=== PATIENT | male | born 1950 | race Caucasian/White ===

== ENCOUNTER 2021-10-24 11:44 | Inpatient (IN) | payer MEDICARE ==
[2021-10-24] MEDS ORDERED: HEPARIN SODIUM 1,000 UN/ML (10ML VL) IV PRN (21:05)
[2021-10-24] MEDS: HEPARIN SOD,PORK IN 0.45% NACL 25,000 UNIT in 0.45% NACL 1 250ML.BAG IV SCH (21:50)
[2021-10-24 22:33] LABS: INR 0.9 (<1.2); Prothrombin Time 10.3 sec (9.0-12.0)
[2021-10-25] MEDS ORDERED: ACETAMINOPHEN TAB 325 MG TAB PO PRN (00:24)
[2021-10-25] MEDS: ASPIRIN 81 MG PO SCH ×2 (00:57→08:21)
[2021-10-25] MEDS: METOPROLOL TARTRATE 25 MG TAB PO SCH ×3 (00:57→22:44)
[2021-10-25] MEDS: SODIUM CHLORIDE 0.9% 1,000 ML in EMPTY BAG 1 BAG IV SCH ×2 (00:59→08:22)
[2021-10-25] MEDS ORDERED: NITROGLYCERIN-D5W PMX 50 MG in DEXTROSE/WATER 1 250ML.BAG IV SCH (01:00)
[2021-10-25 05:38] LABS: Glucose,Whole Blood 183 mg/dL (75-99)
[2021-10-25] MEDS: INSULIN ASPART (NovoLOG) 100 UNIT/ML VIAL SQ SCH ×4 (06:44→22:44)
[2021-10-25 08:14] LABS: Basophils # (A) 0.1 k/uL (0-0.2); Basophils % (A) 1 %; Eosinophils # (A) 0.3 k/uL (0-0.7); Eosinophils % (A) 3 %; HCT 42.3 % (39.0-53.0); HGB 13.9 gm/dL (13.0-17.5); Lymphocytes # (A) 2.6 k/uL (1.0-4.8); Lymphocytes % (A) 31 %; MCH 30.8 pg (25.0-35.0); MCHC 32.8 g/dL (31.0-37.0); Mean Platelet Volume 7.2; Monocytes # (A) 0.4 k/uL (0-1.0); Monocytes % (A) 5 %; Neutrophils # (A) 5.1 k/uL (1.3-7.7); Neutrophils % (A) 59 %; Platelet Count 280 k/uL (150-450); RDW 12.5 % (11.5-15.5); WBC 8.6 k/uL (3.8-10.6)
[2021-10-25] MEDS ORDERED: ASPIRIN 325 MG TAB PO STA (08:21)
[2021-10-25 08:27] LABS: African American GFR (CKD) >90 (>60 ml/min/1.73 sqM); Anion Gap 8 mmol/L; Blood Urea Nitrogen 14 mg/dL (9-20); Calcium 8.4 mg/dL (8.4-10.2); Carbon Dioxide 27 mmol/L (22-30); Chloride 103 mmol/L (98-107); Glucose 163 mg/dL (74-99); Non-African American GFR(CKD) >90 (>60 ml/min/1.73 sqM); Potassium 3.9 mmol/L (3.5-5.1); Sodium 138 mmol/L (137-145)
[2021-10-25] MEDS: ATORVASTATIN 80 MG TAB PO SCH ×2 (08:33→22:44)
--- NOTE | 2021-10-25 09:11 | P.CRDCN ---
History of Present Illness Consult date: 10/25/21 History of present illness: HISTORY OF PRESENT ILLNESS: This is a 70-year-old male with a past medical history significant for coronary artery disease with previous stenting to the LAD, hypertension, and hyperlipidemia. Patient follows in the office with Dr. Brito. We have been asked to see the patient in consultation for NSTEMI. Patient examined at the bedside. Patient was transferred from outside facility secondary to abnormal troponins. Patient initially presented with a chief complaint of chest pain. Patient was started on IV heparin. This morning the patient has chest pain free. He is scheduled for cardiac catheterization this morning. * EKG reveals sinus mechanism with nonspecific ST-T wave changes * Chest xray not available at the time of this dictation * Laboratory data: WBC 8.6. Hemoglobin 13.9. Platelet count 280. Sodium 138. Potassium 3.9. BUN 14. Creatinine 0.71. Troponin 1.590. 3.680. 2.230. * Current home cardiac medications include hydrochlorothiazide 25 mg daily, Norvasc 10 mg daily, Imdur 30 mg daily, aspirin 81 mg daily, and lisinopril 20 mg daily * Patient underwent Lexiscan stress test in September 2020 which was negative for ischemia * Most recent echocardiogram obtained in May 2019 revealing ejection fraction 55%, mild MR, mild TR REVIEW OF SYSTEMS: At the time of my exam: CONSTITUTIONAL: Denies fever or chills. HEENT: Denies blurred vision, vision changes, or eye pain. Denies hemoptysis CARDIOVASCULAR: Denies chest pain. Denies orthopnea. Denies PND. Denies palpitations RESPIRATORY: Denies shortness of breath. GASTROINTESTINAL: Denies abdominal pain. Denies nausea or vomiting. HEMATOLOGIC: Denies bleeding disorders. GENITOURINARY: Denies any blood in urine. SKIN: Denies pruitis. Denies rash. PHYSICAL EXAM: VITAL SIGNS: Reviewed. GENERAL: Well-developed in no acute distress. HEENT: Head is normocephalic. Pupils are equal, round. Sclerae anicteric. Mucous membranes of the mouth are moist. Neck supple. No JVD or thyromegaly LUNGS: Respirations even and unlabored. Lungs essentially clear to auscultation bilaterally. HEART: Regular rate and rhythm. S1 and S2 heard. ABDOMEN: Soft. Nondistended. Nontender. EXTREMITIES: Normal range of motion. No clubbing or cyanosis. Peripheral pulses intact. No lower extremity edema NEUROLOGIC: Awake and alert. Oriented x 3. ASSESSMENT: Non-STEMI Coronary artery disease with previous PCI to LAD Hypertension Hyperlipidemia PLAN: Obtain 2-D echo to assess cardiac structure and function Resume home cardiac medications Continue IV heparin Patient to undergo cardiac catheterization today with Dr. Duarte Further recommendations pending patient's course Nurse practitioner note has been reviewed by physician. Signing provider agrees with the documented findings, assessment, and plan of care. Past Medical History Past Medical History: Cancer, Diabetes Mellitus, Hyperlipidemia, Hypertension, Sleep Apnea/CPAP/BIPAP Additional Past Medical History / Comment(s): HAD STRESS TEST WITH DR. ANDREW GONG ON 11/02/15. CPAP. MELANOMA(NECK). RENAL CALCULI. History of Any Multi-Drug Resistant Organisms: None Reported Past Surgical History: Appendectomy, Heart Catheterization With Stent Additional Past Surgical History / Comment(s): REMOVAL OF MELANOMA FROM NECK Past Anesthesia/Blood Transfusion Reactions: No Reported Reaction Date of Last Stent Placement:: 2012 Past Psychological History: No Psychological Hx Reported Smoking Status: Never smoker Past Alcohol Use History: Occasional Past Drug Use History: None Reported Medications and Allergies Home Medications Medication Instructions Recorded Confirmed Type amLODIPine [Norvasc] 10 mg PO DAILY 11/02/15 10/24/21 History metFORMIN HCL [Glucophage] 500 mg PO BID-W/MEALS 11/02/15 10/24/21 History Aspirin EC [Ecotrin Low Dose] 81 mg PO DAILY 10/24/21 10/24/21 History Atorvastatin Calcium [Lipitor] 80 mg PO DAILY 10/24/21 10/24/21 History Isosorbide Mononitrate ER [Imdur] 30 mg PO DAILY 10/24/21 10/24/21 History Multivit-Min/FA/Lycopen/Lutein 1 tab PO DAILY 10/24/21 10/24/21 History [Centrum Silver Men Tablet] Nitroglycerin Sl Tabs [Nitrostat] 0.4 mg SUBLINGUAL Q5M PRN 10/24/21 10/24/21 History hydroCHLOROthiazide 25 mg PO DAILY 10/24/21 10/24/21 History lisinopriL [Zestril] 20 mg PO DAILY 10/24/21 10/24/21 History Allergies Allergy/AdvReac Type Severity Reaction Status Date / Time No Known Allergies Allergy Verified 11/02/15 13:57 Physical Exam Vitals: Vital Signs Temp Pulse Pulse Resp BP BP Pulse Ox 10/25/21 04:00 98.5 F 50 L 16 142/76 97 10/25/21 01:36 60 16 10/24/21 23:34 98.1 F 60 16 164/85 94 L 10/24/21 22:00 58 L 18 160/82 96 10/24/21 21:03 97.8 F 76 16 141/92 97 Intake and Output 10/24/21 10/25/21 10/25/21 22:59 06:59 14:59 Intake Total 17.667 Balance 17.667 Intake: Intake, IV Titration 17.667 Amount Heparin Sod,Pork in 0.45% 17.667 NaCl 25,000 unit In 0.45 % NaCl 1 250ml.bag @ 9.4 UNITS/KG/HR 10.02 mls/hr IV .Q24H [facility] Rx#: [id number] Other: Voiding Method Toilet # Voids 1 Weight 106 kg 106.2 kg Results 10/25/21 07:25 10/25/21 07:25 Cardiac Enzymes 10/24/21 10/24/21 Range/Units 12:02 21:41 Troponin I 1.590 H* 3.680 H* (0.000-0.034) ng/mL Coagulation 10/24/21 Range/Units 21:41 PT 10.3 (9.0-12.0) sec APTT 25.0 (22.0-30.0) sec Current Medications Generic Name Dose Route Start Last Admin Trade Name Freq PRN Reason Stop Dose Admin Acetaminophen 650 mg 10/25/21 00:24 10/25/21 00:56 Acetaminophen Tab 325 Mg Tab PO 650 mg Q6HR PRN Administration Fever and/ or Pain Aspirin 81 mg 10/25/21 00:25 10/25/21 00:57 Aspirin 81 Mg PO 81 mg DAILY KEELY Administration Atorvastatin Calcium 80 mg 10/25/21 21:00 Atorvastatin 80 Mg Tab PO HS KEELY Heparin Sodium (Porcine) 0 unit 10/24/21 21:05 10/24/21 23:51 Heparin Sodium 1,000 Un/Ml (10ml Vl) IV 4,000 unit PER PROTOCOL PRN Administration Low PTT Protocol Heparin Sodium/Sodium Chloride 250 mls @ 10.02 mls/hr 10/24/21 21:15 10/24/21 23:36 25,000 unit/ Sodium Chloride IV 12.38 units/kg/hr .Q24H KEELY 13.196 mls/hr Titration Protocol 9.4 UNITS/KG/HR Sodium Chloride 1,000 ml/ IV 1,000 mls @ 106.594 mls/hr 10/25/21 00:30 10/25/21 00:59 Solution IV 106.594 mls/hr .Q9H23M KEELY Administration 1 ML/KG/HR Nitroglycerin/Dextrose 50 mg/ 250 mls @ 6 mls/hr 10/25/21 01:00 IV Solution IV .Q24H KEELY Protocol 20 MCG/MIN Insulin Aspart 0 unit 10/25/21 07:30 10/25/21 06:44 Insulin Aspart (Novolog) 100 Unit/Ml Vial SQ 3 unit ACHS KEELY Administration Protocol Metoprolol Tartrate 25 mg 10/25/21 00:30 10/25/21 00:57 Metoprolol Tartrate 25 Mg Tab PO 25 mg BID KEELY Administration Intake and Output 10/24/21 10/25/21 10/25/21 22:59 06:59 14:59 Intake Total 17.667 Balance 17.667 Intake: Intake, IV Titration 17.667 Amount Heparin Sod,Pork in 0.45% 17.667 NaCl 25,000 unit In 0.45 % NaCl 1 250ml.bag @ 9.4 UNITS/KG/HR 10.02 mls/hr IV .Q24H [facility] Rx#: [id number] Other: Voiding Method Toilet # Voids 1 Weight 106 kg 106.2 kg
[2021-10-25] MEDS ORDERED: VERAPAMIL 2.5 MG/ML 2 ML AMP ONE (09:16)
[2021-10-25] MEDS ORDERED: HEPARIN SODIUM 1,000 UN/ML (10ML VL) ONE ×2 (09:16→10:41)
[2021-10-25] MEDS ORDERED: IV FLUID CONTINUATION 1,000 ML IV ONE (09:20)
[2021-10-25] MEDS ORDERED: fentaNYL (PF) 50 MCG/ML 2 ML AMP ONE (09:29)
[2021-10-25] MEDS: MIDAZOLAM 2 MG/2 ML VIAL IV ONE ×2 (09:30→10:39)
[2021-10-25] MEDS ORDERED: fentaNYL (PF) 50 MCG/ML 2 ML AMP IV ONE (09:30)
[2021-10-25] MEDS ORDERED: LIDOCAINE 1% INJ 10MG/ML (5 ML VIAL-PF) SQ ONE (09:33)
[2021-10-25] MEDS ORDERED: VERAPAMIL SYRINGE (5 MG/10 ML) INTRAARTER ONE (09:35)
[2021-10-25] MEDS: HEPARIN SODIUM 1,000 UN/ML (10ML VL) IV ONE ×6 (09:39→11:07)
[2021-10-25] MEDS ORDERED: TICAGRELOR 90 MG TAB ONE (10:05)
[2021-10-25] MEDS ORDERED: TICAGRELOR 90 MG TAB PO ONE (10:07)
[2021-10-25] MEDS: NITROGLYCERIN 1000MCG/10ML SYRINGE INTRACORON ONE ×4 (10:47→11:17)
[2021-10-25] MEDS: niCARdipine Syringe (1,000 mcg/10 mL) INTRACORON ONE ×2 (10:58→11:03)
[2021-10-25] MEDS ORDERED: IOPAMIDOL-370 125ML BTL INJ ONE (11:09)
--- NOTE | 2021-10-25 11:09 | CC ---
CARDIAC CATHETERIZATION REPORT INDICATION: Acute non ST segment [place]. PROCEDURE NOTE: After obtaining informed consent, left heart catheterization and coronary angiogram were performed via the right radial artery using size 3 and a half Isidro right and left catheters. Pressures were obtained using the right Isidro catheter. The patient tolerated the procedure uneventfully. He received moderate conscious sedation. Total sedation time was 18 minutes. I obtained right radial artery access using Seldinger technique, and catheter and a Glidewire was used to manipulate the catheter into the ascending aorta, where the catheters were exchanged. The patient received 5 mg of verapamil and 5000 units of intravenous heparin as per protocol. FINDINGS: HEMODYNAMICS: Left ventricular end-diastolic pressure is 12-14 mm. There is no significant gradient across the aortic valve. LEFT VENTRICULOGRAM: Not performed. ANGIOGRAPHIC DATA: LEFT MAIN CORONARY ARTERY: Left main coronary artery is a normal-sized vessel and is free of stenosis, appears calcified, divides into left anterior descending coronary artery and circumflex coronary artery. CIRCUMFLEX CORONARY ARTERY: Circ shows mild to moderate diffuse disease and is calcified. LEFT ANTERIOR DESCENDING CORONARY ARTERY: LAD was previously stented in the proximal segment and stented segment appears patent. There is a small-caliber diagonal branch that shows diffuse disease. RIGHT CORONARY ARTERY: Right coronary artery is a large dominant vessel that is heavily calcified. There is a focal 95% stenosis in the mid RCA with an area of . The distal vessel is filling very slowly. The PDA also seems subtotally occluded. CONCLUSIONS: Three-vessel coronary artery disease with the vessels heavily calcified. Patent stent within the LAD, new focal stenosis in the mid RCA and subtotal occlusion of the PDA, which is probably the vessel responsible for the myocardial infarction. PLAN: Dr. Alvarenga the on-call electronics engineering professor, will review the angiogram and proceed with angioplasty. MMODL / IJN: [id number] /
--- NOTE | 2021-10-25 11:15 | LTR ---
DATE OF SERVICE: 10/25/[address] Cage: I performed cardiac catheterization on Jaime Martinez. A detailed catheterization note is enclosed for your records. In brief, Rajendra presented to hospital with acute non ST segment [place] and was advised to undergo cardiac catheterization that revealed patent stent within the LAD and critical stenosis involving mid RCA and PDA. The patient will undergo angioplasty of the same. Thank you for giving us the privilege to participate in the care of this pleasant gentleman. Sincerely, MARTIN / SANDRA: [id number] /
[2021-10-25] MEDS ORDERED: IOPAMIDOL-370 100ML BTL INJ ONE (11:27)
[2021-10-25 12:41] LABS: Glucose,Whole Blood 171 mg/dL (75-99)
[2021-10-25] MEDS ORDERED: CLOPIDOGREL 75 MG TAB ONE (12:59)
[2021-10-25] MEDS ORDERED: lisinopriL 20 MG TAB PO STA (14:19)
[2021-10-25] MEDS ORDERED: amLODIPine 10 MG TAB PO STA (14:20)
[2021-10-25 16:59] LABS: Glucose,Whole Blood 173 mg/dL (75-99)
--- NOTE | 2021-10-25 18:19 | P.PRCINT ---
Percutaneous Coronary Int. - Percutaneous Coronary Intervention Percutaneous Coronary Intervention: PROCEDURES PERFORMED: Left coronary angiography, CSI rotational atherectomy RCA, PCI proximal RCA with 3.5 x 12mm Xience PATRICK and PCI 3.5 x 28mm Xience PATRICK, post dilated with a 4.0 NC balloon. INDICATION: NSTEMI PROCEDURE: After the risks, benefits and alternatives of the above mentioned procedure explained in detail with the patient, informed consent was obtained. Patient was taken to the catheterization lab and prepped and draped in usual fashion. A 6-Anguillan sheath had already been placed in the right radial artery. The decision was made to perform PCI of the RCA. A 6Fr AL 1.0 guide catheter was used to engage the RCA. A 0.014 Viper wire was used to wire into the distal RCA with the help of a supercross microcatheter. The artery was noted to be diffusely heavily calcified. There was some consideration of fresh thrombus but also appeared heavily calcified and therefore atherectomy was recommended. Therefore a 6Fr sheath was placed in the right femoral vein using ultrasound guidance. A 5Fr TVP was advanced into the RV and TVP was placed on backup. Next atherectomy was performed with CSI for 5 runs on low speed and 2 runs on higher run. There was some no reflow noted after atherectomy and therefore further balloon angioplasty was performed with a 1.5 balloon and intracoronary nicardipine and nitro were given with improvement in flow. With the help of a guideliner, balloon angioplasty was performed with a 3.0 balloon. There was a 70% stenosis of the proximal RCA and therefore PCI was performed of the ostial RCA with a 3.5 x 12mm Xience PATRICK. The proximal stent was post dilated with a 4.0 NC balloon. Next a 3.5 x 28mm Xience PATRICK was deployed in the mid RCA. The stent was post dilated with a 4.0 NC balloon. Final angiograms were performed. Preintervention there was HORACIO 1 flow in the PDA and HORACIO 2 flow in the PLV with 99% mid RCA stenosis and 70% proximal RCA stenosis and post intervention there was HORACIO 3 flow and <10% residual stenosis. The right radial sheath was removed and a TR band was placed with hemostasis achieved. The right femoral sheath was left in place to be pulled at a later time. The patient tolerated the procedure well. Patient was transported back to the post catheterization holding area in stable condition. Conscious Sedation: Patient was monitored under the direct supervision of vision of myself for conscious sedation using Versed and fentanyl for a total duration of 88 minutes SELECTIVE CORONARY ARTERIOGRAPHY: LEFT MAIN: Not imaged. LEFT ANTERIOR DESCENDING CORONARY ARTERY: Not imaged. LEFT CIRCUMFLEX CORONARY ARTERY: Not imaged. RIGHT CORONARY ARTERY: The right coronary artery is a large caliber vessel which gives off a PDA and PLV branch and is the dominant vessel. There is diffuse heavy calcification of the entire proximal to distal RCA. There is a proximal 70% RCA stenosis and a focal 99% RCA with surrounding diffuse 40-50% stenosis. FINAL IMPRESSION: 1. CAD as described above with 99% mid RCA and 70% proximal RCA stenosis, s/p CSI rotational atherectomy RCA, PCI proximal RCA with 3.5 x 12mm Xience PATRICK and PCI 3.5 x 28mm Xience PATRICK, post dilated with a 4.0 NC balloon. PLAN: 1. Aggressive risk factor modification per most recent ACC/AHA guidelines. 2. Continue dual antiplatelets with aspirin and Brillinta for 12 months.
[2021-10-25] MEDS ORDERED: ZOLPIDEM 5 MG TAB PO PRN (18:22)
[2021-10-25] MEDS ORDERED: ATROPINE SULFATE 0.1 MG/ML 10ML SYRINGE IV PRN (18:22)
[2021-10-25] MEDS ORDERED: NITROGLYCERIN SL TABS 0.4 MG TAB SUBLINGUAL PRN (18:22)
[2021-10-25] MEDS ORDERED: MAG HYDROX/AL HYDROX/SIMETH 30 ML CUP PO PRN (18:22)
[2021-10-25] MEDS ORDERED: RX INFO: IV CONTRAST WAS GIVEN 1 EACH MISC MISCELLANE PRN (18:22)
[2021-10-25] MEDS ORDERED: ATORVASTATIN 80 MG TAB PO SCH (21:00)
[2021-10-25 21:08] LABS: Glucose,Whole Blood 175 mg/dL (75-99)
[2021-10-25] MEDS: TICAGRELOR 90 MG TAB PO SCH (22:44)
[2021-10-26] MEDS: HEPARIN SOD,PORK IN 0.45% NACL 25,000 UNIT in 0.45% NACL 1 250ML.BAG IV SCH (03:31)
[2021-10-26 06:05] LABS: Glucose,Whole Blood 154 mg/dL (75-99)
[2021-10-26] MEDS: INSULIN ASPART (NovoLOG) 100 UNIT/ML VIAL SQ SCH ×2 (06:25→11:42)
[2021-10-26] MEDS ORDERED: hydroCHLOROthiazide 25 MG TAB PO SCH (09:00)
[2021-10-26] MEDS ORDERED: amLODIPine 10 MG TAB PO SCH (09:00)
[2021-10-26] MEDS ORDERED: ISOSORBIDE MONONITRATE ER 30 MG TAB.ER.24H PO SCH (09:00)
[2021-10-26] MEDS ORDERED: lisinopriL 20 MG TAB PO SCH (09:00)
[2021-10-26] MEDS: SODIUM CHLORIDE 0.9% 1,000 ML in EMPTY BAG 1 BAG IV SCH ×2 (09:16→10:24)
[2021-10-26] MEDS: TICAGRELOR 90 MG TAB PO SCH (09:20)
[2021-10-26] MEDS: ASPIRIN 81 MG PO SCH (09:20)
[2021-10-26] MEDS: METOPROLOL TARTRATE 25 MG TAB PO SCH (09:20)
[2021-10-26 09:55] VITALS: RESP 16
[2021-10-26 10:06] LABS: African American GFR (CKD) >90 (>60 ml/min/1.73 sqM); Non-African American GFR(CKD) >90 (>60 ml/min/1.73 sqM)
--- NOTE | 2021-10-26 10:30 | P.PN ---
Subjective HISTORY OF PRESENT ILLNESS: This is a 70-year-old male with a past medical history significant for coronary artery disease with previous stenting to the LAD, hypertension, and hyperlipidemia. Patient follows in the office with Dr. Brito. We have been asked to see the patient in consultation for NSTEMI. Patient examined at the bedside. Patient was transferred from outside facility secondary to abnormal troponins. Patient initially presented with a chief complaint of chest pain. Patient was started on IV heparin. This morning the patient has chest pain free. He is scheduled for cardiac catheterization this morning. * EKG reveals sinus mechanism with nonspecific ST-T wave changes * Chest xray not available at the time of this dictation * Laboratory data: WBC 8.6. Hemoglobin 13.9. Platelet count 280. Sodium 138. Potassium 3.9. BUN 14. Creatinine 0.71. Troponin 1.590. 3.680. 2.230. * Current home cardiac medications include hydrochlorothiazide 25 mg daily, Norvasc 10 mg daily, Imdur 30 mg daily, aspirin 81 mg daily, and lisinopril 20 mg daily * Patient underwent Lexiscan stress test in September 2020 which was negative for ischemia * Most recent echocardiogram obtained in May 2019 revealing ejection fraction 55%, mild MR, mild TR 10/26 Patient seen and examined. Patient denies any further chest pain. He did undergo heart catheterization with mild disease on the left and 99% RCA stenosis and underwent successful atherectomy and PCI. He has been doing well since. Creatinine noted to be stable at 0.7. Echocardiogram is pending. Vital signs stable. PHYSICAL EXAM: VITAL SIGNS: Reviewed. GENERAL: Well-developed in no acute distress. HEENT: Head is normocephalic. Pupils are equal, round. Sclerae anicteric. Mucous membranes of the mouth are moist. Neck supple. No JVD or thyromegaly LUNGS: Respirations even and unlabored. Lungs essentially clear to auscultation bilaterally. HEART: Regular rate and rhythm. S1 and S2 heard. ABDOMEN: Soft. Nondistended. Nontender. EXTREMITIES: Normal range of motion. No clubbing or cyanosis. Peripheral pulses intact. No lower extremity edema NEUROLOGIC: Awake and alert. Oriented x 3. ASSESSMENT: Non-STEMI s/p PCI RCA 10/25 Coronary artery disease with previous PCI to LAD Hypertension Hyperlipidemia PLAN: Patient is status post atherectomy and PCI of his RCA which was the culprit lesion. He denies any further chest pain. He has been doing well on dual antiplatelets. Creatinine remains stable. Await 2-D echo however patient is stable and may be discharged from a cardiac standpoint with outpatient follow-up in 1 week. Objective - Vital Signs Vital signs: Vital Signs Temp 98.2 F 10/26/21 08:00 Pulse 86 10/26/21 08:00 Resp 16 10/26/21 08:00 BP 136/81 10/26/21 08:00 Pulse Ox 95 10/26/21 08:00 FiO2 Intake & Output 10/25/21 10/26/21 10/26/21 18:59 06:59 18:59 Intake Total 1150 Balance 1150 Intake: IV 250 Intake, IV Titration 900 Amount IV Fluid Continuation 1, 300 000 ml @ 0 mls/hr IV .[facility] Rx#:[id number] Sodium Chloride 0.9% 1, 600 000 ml In Empty Bag 1 bag @ 1 ML/KG/HR 106.594 mls /hr IV .Q9H23M [facility] Rx#: [id number] Oral 0 Other: Voiding Method Toilet Toilet Toilet # Voids 0 2 2 # Bowel Movements 0 0 - Labs CBC & Chem 7: 10/25/21 07:25 10/26/21 08:57 Labs: Abnormal Lab Results - Last 24 Hours (Table) 10/25/21 10/25/21 10/25/21 Range/Units 12:29 16:55 20:43 POC Glucose (mg/dL) 171 H 173 H 175 H (75-99) mg/dL 10/26/21 Range/Units 05:42 POC Glucose (mg/dL) 154 H (75-99) mg/dL
[2021-10-26 11:08] LABS: Glucose,Whole Blood 155 mg/dL (75-99)
--- NOTE | 2021-10-26 11:52 | CA ---
Transthoracic Echo Report Name: Jaime Martinez Age: 70 Gender: M : 1950 Exam Date: 10/25/2021 12:39 Exam Location: [place] [facility] Ht (in): 72 Wt (lb): 234 Ordering Physician: Jesenia Mena Attending/Referring Phys: [id number], Rajesh Database Support Lillian Fortune RDCS Procedure CPT: Indications: LV function Cardiac Hx: Technical Quality: Fair Contrast 1: Total Dose (mL): Contrast 2: Total Dose (mL): MEASUREMENTS (Male / Female) Normal Values 2D ECHO LV Diastolic Diameter PLAX 5.1 cm 4.2 - 5.9 / 3.9 - 5.3 cm LV Systolic Diameter PLAX 3.2 cm IVS Diastolic Thickness 1.3 cm 0.6 - 1.0 / 0.6 - 0.9 cm LVPW Diastolic Thickness 1.3 cm 0.6 - 1.0 / 0.6 - 0.9 cm LV Relative Wall Thickness 0.5 RV Internal Dim ED PLAX 3.1 cm LVOT Diameter 2.2 cm LA Systolic Diameter LX 3.8 cm 3.0 - 4.0 / 2.7 - 3.8 cm LA Volume 39.0 cm??? 18 - 58 / 22 - 52 cm??? M-MODE Aortic Root Diameter MM 3.4 cm MV E Point Septal Separation 0.6 cm AV Cusp Separation MM 2.0 cm DOPPLER AV Peak Velocity 210.2 cm/s AV Peak Gradient 17.7 mmHg AV Mean Velocity 128.0 cm/s AV Mean Gradient 8.4 mmHg AV Velocity Time Integral 37.8 cm LVOT Peak Velocity 125.5 cm/s LVOT Peak Gradient 6.3 mmHg AV Area Cont Eq pk 2.4 cm??? MV Area PHT 3.1 cm??? Mitral E Point Velocity 78.6 cm/s Mitral A Point Velocity 103.2 cm/s Mitral E to A Ratio 0.8 MV Deceleration Time 243.4 ms MV E' Velocity 8.8 cm/s Mitral E to MV E' Ratio 8.9 TR Peak Velocity 224.5 cm/s TR Peak Gradient 20.2 mmHg Right Ventricular Systolic Press 25.2 mmHg FINDINGS Left Ventricle Left ventricular ejection fraction is estimated at 50-55 %. Left ventricular cavity size normal. Mild concentric left ventricular hypertrophy. Right Ventricle Normal right ventricular size. Right ventricular systolic pressure within normal limits. Right Atrium Normal right atrial size. Left Atrium Normal left atrial size. No evidence for an atrial septal defect. Mitral Valve Trace mitral regurgitation. Aortic Valve Mild aortic stenosis with a peak gradient of 18 mmHg and a mean gradient of 8 mmHg. Tricuspid Valve Mild tricuspid regurgitation. Pulmonic Valve Trace pulmonic regurgitation. Pericardium Normal pericardium. Aorta Normal size aortic root and proximal ascending aorta. CONCLUSIONS Left ventricular systolic function is normal Aortic sclerosis with mild aortic stenosis Previewed by: Dr. Mika Brito MD (Electronically Signed) Final Date: 26 Oct 2021 11:52
[2021-10-26 12:04] VITALS: BP 131/82; PULSE 63; TEMP 98
--- NOTE | 2021-10-26 18:01 | P.HPIM ---
History of Present Illness H&P Date: 10/25/21 Chief Complaint: Elevated troponin History of coronary artery disease with previous is history of stenting to LAD, hypertension and hyperlipidemia, transferred from outside facility with elevated troponin; patient didn't present to ED with complaint of chest pain; patient was started on IV heparin which did result in resolution of chest pain and was transferred to our facility for further evaluation EKG completed reveal sinus rhythm with nonspecific ST and T wave changes Labs reviewed. WBC of 8.6, hemoglobin 13.9, platelets 280, sodium 138, potassium 3.9, BUN 14, creatinine of 0.7, troponin initially at 1.59 which trended up to 3.680 Patient has been evaluated by cardiology and is recommended cardiac catheterization Review of Systems REVIEW OF SYSTEMS: CONSTITUTIONAL: No fever, no malaise, no fatigue. HEENT: No recent visual problems or hearing problems. Denied any sore throat. CARDIOVASCULAR: Chest pain, orthopnea, PND, no palpitations, no syncope. PULMONARY: No shortness of breath, no cough, no hemoptysis. GASTROINTESTINAL: No diarrhea, no nausea, no vomiting, no abdominal pain. NEUROLOGICAL: No headaches, no weakness, no numbness. HEMATOLOGICAL: Denies any bleeding or petechiae. GENITOURINARY: Denies any burning micturition, frequency, or urgency. MUSCULOSKELETAL/RHEUMATOLOGICAL: Denies any joint pain, swelling, or any muscle pain. ENDOCRINE: Denies any polyuria or polydipsia. The rest of the 14-point review of systems is negative. Past Medical History Past Medical History: Cancer, Diabetes Mellitus, Hyperlipidemia, Hypertension, S leep Apnea/CPAP/BIPAP Additional Past Medical History / Comment(s): HAD STRESS TEST WITH DR. ANDREW GONG ON 11/02/15. CPAP. MELANOMA(NECK). RENAL CALCULI. History of Any Multi-Drug Resistant Organisms: None Reported Past Surgical History: Appendectomy, Heart Catheterization With Stent Additional Past Surgical History / Comment(s): REMOVAL OF MELANOMA FROM NECK Past Anesthesia/Blood Transfusion Reactions: No Reported Reaction Date of Last Stent Placement:: 2012 Past Psychological History: No Psychological Hx Reported Smoking Status: Never smoker Past Alcohol Use History: Occasional Past Drug Use History: None Reported Medications and Allergies Home Medications Medication Instructions Recorded Confirmed Type amLODIPine [Norvasc] 10 mg PO DAILY 11/02/15 10/24/21 History metFORMIN HCL [Glucophage] 500 mg PO BID-W/MEALS 11/02/15 10/24/21 History Aspirin EC [Ecotrin Low Dose] 81 mg PO DAILY 10/24/21 10/24/21 History Atorvastatin Calcium [Lipitor] 80 mg PO DAILY 10/24/21 10/24/21 History Isosorbide Mononitrate ER [Imdur] 30 mg PO DAILY 10/24/21 10/24/21 History Multivit-Min/FA/Lycopen/Lutein 1 tab PO DAILY 10/24/21 10/24/21 History [Centrum Silver Men Tablet] Nitroglycerin Sl Tabs [Nitrostat] 0.4 mg SUBLINGUAL Q5M PRN 10/24/21 10/24/21 History hydroCHLOROthiazide 25 mg PO DAILY 10/24/21 10/24/21 History lisinopriL [Zestril] 20 mg PO DAILY 10/24/21 10/24/21 History Aspirin 81 mg PO DAILY tab 10/26/21 Rx Metoprolol Tartrate [Lopressor] 25 mg PO BID 30 Days #60 tab 10/26/21 Rx Nitroglycerin Sl Tabs [Nitrostat] 0.4 mg SUBLINGUAL Q5M PRN tab 10/26/21 Rx Ticagrelor [Brilinta] 90 mg PO BID 30 Days #60 tab 10/26/21 Rx Allergies Allergy/AdvReac Type Severity Reaction Status Date / Time No Known Allergies Allergy Verified 11/02/15 13:57 Physical Exam Vitals: Vital Signs Temp Pulse Pulse Resp BP BP Pulse Ox 10/25/21 08:32 98.7 F 86 18 147/85 96 10/25/21 04:00 98.5 F 50 L 16 142/76 97 10/25/21 01:36 60 16 10/24/21 23:34 98.1 F 60 16 164/85 94 L 10/24/21 22:00 58 L 18 160/82 96 10/24/21 21:03 97.8 F 76 16 141/92 97 Intake and Output 10/24/21 10/25/21 10/25/21 22:59 06:59 14:59 Intake Total 17.667 0 Balance 17.667 0 Intake: Intake, IV Titration 17.667 Amount Heparin Sod,Pork in 0.45% 17.667 NaCl 25,000 unit In 0.45 % NaCl 1 250ml.bag @ 9.4 UNITS/KG/HR 10.02 mls/hr IV .Q24H [facility] Rx#: [id number] Oral 0 Other: Voiding Method Toilet # Voids 1 0 # Bowel Movements 0 Weight 106 kg 106.2 kg PHYSICAL EXAMINATION: GENERAL: The patient is alert and oriented x3, not in any acute distress. Well developed, well nourished. HEENT: Pupils are round and equally reacting to light. EOMI. No scleral icterus. No conjunctival pallor. Normocephalic, atraumatic. No pharyngeal erythema. No thyromegaly. CARDIOVASCULAR: S1 and S2 present. No murmurs, rubs, or gallops. PULMONARY: Chest is clear to auscultation, no wheezing or crackles. ABDOMEN: Soft, nontender, nondistended, normoactive bowel sounds. No palpable organomegaly. MUSCULOSKELETAL: No joint swelling or deformity. EXTREMITIES: No cyanosis, clubbing, or pedal edema. NEUROLOGICAL: Gross neurological examination did not reveal any focal deficits. SKIN: No rashes. Results CBC & Chem 7: 10/25/21 07:25 10/26/21 08:57 Labs: Abnormal Lab Results - Last 24 Hours (Table) 10/24/21 10/24/21 10/25/21 Range/Units 12:02 21:41 05:37 APTT (22.0-30.0) sec Glucose (74-99) mg/dL POC Glucose (mg/dL) 183 H (75-99) mg/dL Troponin I 1.590 H* 3.680 H* (0.000-0.034) ng/mL 10/25/21 10/25/21 10/25/21 Range/Units 07:25 07:25 07:25 APTT 30.7 H (22.0-30.0) sec Glucose 163 H (74-99) mg/dL POC Glucose (mg/dL) (75-99) mg/dL Troponin I 2.230 H* (0.000-0.034) ng/mL Thrombosis Risk Factor Assmnt - Choose All That Apply Any of the Below Risk Factors Present?: Yes Each Factor Represents 1 point: Obesity (BMI >25) Other Risk Factors: Yes Each Risk Factor Represents 2 Points: Age 61-74 years Thrombosis Risk Factor Assessment Total Risk Factor Score: 3 Thrombosis Risk Factor Assessment Level: Moderate Risk Assessment and Plan Assessment: 1. Non-ST elevation - Patient's initial troponin was 1.590 which trended up to 3.6804 over 2.230 after started on IV heparin - Patient remains on IV heparin, aspirin, statins and beta blockers Patient will undergo cardiac catheterization with further recommendations pendi key 2. Hypertension; hydrochlorothiazide 25 mg daily, Norvasc 10 mg daily, lisinopril 20 mg daily and Imdur 30 mg daily 3. Hyperlipidemia; Lipitor 80 mg by mouth daily at bedtime 4. Piv-ogponyh-cxxeuhash diabetes; patient takes metformin at home which has been placed on hold; we will monitor Accu-Cheks every 6 hours as with insulin sliding scale DVT prophylaxis; SCDs/IV heparin CODE STATUS; full code
--- NOTE | 2021-10-26 18:04 | P.DS ---
Providers Date of admission: 10/24/21 14:18 Attending physician: Paul Lawrence Consults: 10/24/21 21:07 Consult Physician Routine Consulting Provider: Fer Alvarenga Consult Reason/Comments: nstemi Do you want consulting provider notified?: Yes Placement Type Exists?: Yes 10/25/21 18:23 Consult Physician Routine Consulting Provider: [facility] Consult Reason/Comments: Post Interventional patient Do you want consulting provider notified?: Already Contacted Primary care physician: [facility] Course: History of coronary artery disease with previous is history of stenting to LAD, hypertension and hyperlipidemia, transferred from outside facility with elevated troponin; patient didn't present to ED with complaint of chest pain; patient was started on IV heparin which did result in resolution of chest pain and was transferred to our facility for further evaluation EKG completed reveal sinus rhythm with nonspecific ST and T wave changes Labs reviewed. WBC of 8.6, hemoglobin 13.9, platelets 280, sodium 138, potassium 3.9, BUN 14, creatinine of 0.7, troponin initially at 1.59 which trended up to 3.680 Patient has been evaluated by cardiology and is recommended cardiac catheterization Echocardiogram completed reveals normal left ventricular systolic function with aortic sclerosis with mild aortic stenosis Cardiac catheterization reveals 99% of mid RCA and 70% proximal RCA stenosis and underwent PCI; patient has been placed on dual antiplatelet therapy with aspirin and Brillinta for 12 months Plan - Discharge Summary Discharge Rx Participant: Yes New Discharge Prescriptions: New Aspirin 81 mg PO DAILY tab Ticagrelor [Brilinta] 90 mg PO BID 30 Days #60 tab Metoprolol Tartrate [Lopressor] 25 mg PO BID 30 Days #60 tab Nitroglycerin Sl Tabs [Nitrostat] 0.4 mg SUBLINGUAL Q5M PRN tab PRN Reason: Chest Pain Continue amLODIPine [Norvasc] 10 mg PO DAILY metFORMIN HCL [Glucophage] 500 mg PO BID-W/MEALS lisinopriL [Zestril] 20 mg PO DAILY Multivit-Min/FA/Lycopen/Lutein [Centrum Silver Men Tablet] 1 tab PO DAILY Atorvastatin Calcium [Lipitor] 80 mg PO DAILY hydroCHLOROthiazide 25 mg PO DAILY Nitroglycerin Sl Tabs [Nitrostat] 0.4 mg SUBLINGUAL Q5M PRN PRN Reason: Chest Pain Isosorbide Mononitrate ER [Imdur] 30 mg PO DAILY Aspirin EC [Ecotrin Low Dose] 81 mg PO DAILY Discharge Medication List amLODIPine [Norvasc] 10 mg PO DAILY 11/02/15 [History] metFORMIN HCL [Glucophage] 500 mg PO BID-W/MEALS 11/02/15 [History] Aspirin EC [Ecotrin Low Dose] 81 mg PO DAILY 10/24/21 [History] Atorvastatin Calcium [Lipitor] 80 mg PO DAILY 10/24/21 [History] Isosorbide Mononitrate ER [Imdur] 30 mg PO DAILY 10/24/21 [History] Multivit-Min/FA/Lycopen/Lutein [Centrum Silver Men Tablet] 1 tab PO DAILY 10/24/21 [History] Nitroglycerin Sl Tabs [Nitrostat] 0.4 mg SUBLINGUAL Q5M PRN 10/24/21 [History] hydroCHLOROthiazide 25 mg PO DAILY 10/24/21 [History] lisinopriL [Zestril] 20 mg PO DAILY 10/24/21 [History] Aspirin 81 mg PO DAILY tab 10/26/21 [Rx] Metoprolol Tartrate [Lopressor] 25 mg PO BID 30 Days #60 tab 10/26/21 [Rx] Nitroglycerin Sl Tabs [Nitrostat] 0.4 mg SUBLINGUAL Q5M PRN tab 10/26/21 [Rx] Ticagrelor [Brilinta] 90 mg PO BID 30 Days #60 tab 10/26/21 [Rx] Follow up Appointment(s)/Referral(s): Cirilo Cage MD [Primary Care Provider] - 1 Week Discharge Disposition: HOME SELF-CARE
== END 2021-10-26 15:13 | disposition home or self-care (01) | DRG 247 ==
LOC: CATHCVL 11:44 → 3SCARD 14:18
PROVIDERS: ADMIT Hospitalist; ATTEND Hospitalist
PROC: B211YZZ Fluoroscopy of Multiple Coronary Arteries using Other Contrast (ICD-10-PCS; 2021-10-25)
PROC: 4A023N7 Measurement of Cardiac Sampling and Pressure, Left Heart, Percutaneous Approach (ICD-10-PCS; 2021-10-25)
PROC: 027035Z Dilation of Coronary Artery, One Artery with Two Drug-eluting Intraluminal Devices, Percutaneous Approach (ICD-10-PCS; principal; 2021-10-25 11:05)
PROC: 02C03ZZ Extirpation of Matter from Coronary Artery, One Artery, Percutaneous Approach (ICD-10-PCS; 2021-10-25 11:05)
DX: I21.4 Non-ST elevation (NSTEMI) myocardial infarction (principal); I10 Essential (primary) hypertension; E78.5 Hyperlipidemia, unspecified; I25.10 Atherosclerotic heart disease of native coronary artery without angina pectoris; E11.9 Type 2 diabetes mellitus without complications; I70.0 Atherosclerosis of aorta; I25.84 Coronary atherosclerosis due to calcified coronary lesion; I35.0 Nonrheumatic aortic (valve) stenosis; Z79.82 Long term (current) use of aspirin; Z79.899 Other long term (current) drug therapy; Z79.84 Long term (current) use of oral hypoglycemic drugs; Z95.5 Presence of coronary angioplasty implant and graft; Z85.820 Personal history of malignant melanoma of skin; Z79.02 Long term (current) use of antithrombotics/antiplatelets; Z87.442 Personal history of urinary calculi
CPT/HCPCS: 80048; 82565; 84484; 85025; 85610; 85730; 93306; 93458; 99291